=== PATIENT | male | born 1965 | race Caucasian/White ===

== ENCOUNTER 2016-09-17 11:40 | Emergency (ER) | payer BC ==
[~2016-09-17] VITALS: Ht 182.9 cm; Wt 65.0 kg
[2016-09-17 11:41] VITALS: BP 98/65; PULSE 91; RESP 16; TEMP 98.3; O2SAT 97
[2016-09-17 13:07] LABS: AUTOMATED NEUTROPHIL # 7.6 TH/MM3 (1.8-7.7); BASOPHIL # 0.1 TH/MM3 (0-0.2); BASOPHIL % 0.6 % (0.0-2.0); EOSINOPHIL # 0.2 TH/MM3 (0-0.4); EOSINOPHIL % 2.3 % (0.0-4.0); HEMATOCRIT 45.7 % (39.0-51.0); HEMO FLAGS DIFF FINAL; LYMPH % 18.5 % (9.0-44.0); MEAN CELL VOLUME 96.2 FL (80.0-100.0); MEAN CORPUSCULAR HEMOGLOBIN 33.1 PG (27.0-34.0); MEAN CORPUSCULAR HGB CONC 34.5 % (32.0-36.0); NEUT % 71.6 % (16.0-70.0); PLATELET COUNT 147 TH/MM3 (150-450); RED BLOOD COUNT 4.75 MIL/MM3 (4.50-5.90); RED CELL DISTRIBUTION WIDTH 12.7 % (11.6-17.2); WHITE BLOOD COUNT 10.7 TH/MM3 (4.0-11.0)
[2016-09-17 13:11] LABS: BLOOD, URINE NEG (NEG); GLUCOSE,URINE NEG (NEG); KETONE, URINE NEG (NEG); NITRITE,URINE NEG (NEG); PH, URINE 5.5 (5.0-8.5); URINE COLOR LIGHT-YELLOW (YELLW/STRAW)
[2016-09-17 13:12] LABS: COMMENT (UR) CULT NOT INDICATED; CULTURE IF INDICATED CULT NOT INDICATED
[2016-09-17 13:21] LABS: AMPHETAMINE, URINE NEG (NEG); BARBITURATES, URINE NEG (NEG); COCAINE, URINE NEG (NEG)
--- NOTE | 2016-09-17 13:25 | PD ---
HPI Chief Complaint: Suicide Ideation/Attempt Time Seen by Provider: 13:20 Travel History International Travel<30 days: No Contact w/Intl Traveler<30days: No Traveled to known affect area: No History of Present Illness HPI 50-year-old male that presents to the ED for evaluation of depression and alcohol and substance abuse. Per patient she's been using lorazepam for a long time. Per patient is prescribed to him. Per patient he has a history of depression and anxiety. Per patient his coping with his depression with alcohol and the family is very concerned because he continues to drink daily and he is not getting any better. Family brought the patient here for evaluation of possible detox. Patient denies any suicidal or homicidal ideation to me. He does state that he feels depressed and the recent that he feels that presents because the drinking. Denies any pain. Per patient he last drank 2 hours before coming couple beers. No recent surgeries. No other medical issues. No substance abuse other than alcohol and using lorazepam for a long time. PFSH Social History Alcohol Use: Yes (Abuse) Tobacco Use: Yes (0.5 ppd) Substance Use: Yes (admits to using lorazepam) Allergies-Medications (Allergen,Severity, Reaction): Coded Allergies: Sulfa (Verified Allergy, Unknown, 09/17/16) Review of Systems Except as stated in HPI: all other systems reviewed are Neg Physical Exam Narrative GENERAL: SKIN: Warm and dry. HEAD: Atraumatic. Normocephalic. EYES: Pupils equal and round. No scleral icterus. No injection or drainage. ENT: No nasal bleeding or discharge. Mucous membranes pink and moist. Tongue is midline. No uvula deviation. NECK: Trachea midline. No JVD. CARDIOVASCULAR: Regular rate and rhythm. No murmurs, S3, S4. RESPIRATORY: No accessory muscle use. Clear to auscultation. Breath sounds equal bilaterally. GASTROINTESTINAL: Abdomen soft, non-tender, nondistended. Hepatic and splenic margins not palpable. MUSCULOSKELETAL: Extremities without clubbing, cyanosis, or edema. No obvious deformities. Full range of motion of the upper and lower external bilaterally. 2+ pulses bilaterally. NEUROLOGICAL: Awake and alert. No obvious cranial nerve deficits. Motor grossly within normal limits. Five out of 5 muscle strength in the arms and legs. Normal speech. PSYCHIATRIC: Appropriate mood and affect; insight and judgment normal. Data Data Last Documented VS Vital Signs Date Time Temp Pulse Resp B/P Pulse Ox O2 Delivery O2 Flow Rate FiO2 09/17/16 12:51 75 18 99 Room Air 09/17/16 11:41 98.3 98/65 Orders Complete Blood Count With Diff (09/17/16 12:42) Comprehensive Metabolic Panel (09/17/16 12:42) Urinalysis - C+S If Indicated (09/17/16 12:42) Drug Screen, Random Urine (09/17/16 12:42) Alcohol (Ethanol) (09/17/16 12:42) Salicylates (Aspirin) (09/17/16 12:42) Tylenol (Acetaminophen) (09/17/16 12:42) Labs Laboratory Tests Test 09/17/16 12:55 White Blood Count 10.7 TH/MM3 Red Blood Count 4.75 MIL/MM3 Hemoglobin 15.7 GM/DL Hematocrit 45.7 % Mean Corpuscular Volume 96.2 FL Mean Corpuscular Hemoglobin 33.1 PG Mean Corpuscular Hemoglobin 34.5 % Concent Red Cell Distribution Width 12.7 % Platelet Count 147 TH/MM3 Mean Platelet Volume 9.2 FL Neutrophils (%) (Auto) 71.6 % Lymphocytes (%) (Auto) 18.5 % Monocytes (%) (Auto) 7.0 % Eosinophils (%) (Auto) 2.3 % Basophils (%) (Auto) 0.6 % Neutrophils # (Auto) 7.6 TH/MM3 Lymphocytes # (Auto) 2.0 TH/MM3 Monocytes # (Auto) 0.7 TH/MM3 Eosinophils # (Auto) 0.2 TH/MM3 Basophils # (Auto) 0.1 TH/MM3 CBC Comment DIFF FINAL Differential Comment Urine Color LIGHT-YELLOW Urine Turbidity CLEAR Urine pH 5.5 Urine Specific [place] 1.001 Urine Protein NEG mg/dL Urine Glucose (UA) NEG mg/dL Urine Ketones NEG mg/dL Urine Occult Blood NEG Urine Nitrite NEG Urine Bilirubin NEG Urine Urobilinogen LESS THAN 2.0 MG/DL Urine Leukocyte Esterase NEG Urine WBC LESS THAN 1 /hpf Microscopic Urinalysis Comment CULT NOT INDICATED Salicylates Level 3.6 MG/DL Urine Opiates Screen NEG Urine Barbiturates Screen NEG Urine Amphetamines Screen NEG Urine Benzodiazepines Screen POS Urine Cocaine Screen NEG Urine Cannabinoids Screen POS MDM Medical Decision Making Medical Screen Exam Complete: Yes Emergency Medical Condition: Yes Medical Record Reviewed: Yes Interpretation(s) CBC Diagram 09/17/16 12:55 Tox screen positive for alcohol, marijuana and benzos LFTs within normal limits. Differential Diagnosis Depression versus alcohol abuse versus alcohol intoxication versus substance abuse versus normal exam Narrative Course 50-year-old male that presents to the ED for evaluation of possible detox. Patient was properly examined and was found to have signs and symptoms very consistent what appears to be alcohol abuse. Patient is depressed but not suicidal. Family is here with patient and they want patient to have detox. Apparently family has already found a place that will take him. At this time we 'll do labs to medically clear the patient. She was negative and with this plan. Labs were essentially unremarkable other than for alcohol. Patient was medically cleared. Okay to go to detox facilities. See ED worsening symptoms. Diagnosis Primary Impression: Alcohol abuse Additional Impression: Depression Qualified Code: F32.0 - Mild single current episode of major depressive disorder Patient Instructions: General Instructions Additional Instructions: Patient was seen at [facility] today. Patient is medically clear. Close follow-up with PCP. See ED worsening symptoms. Med/Other Pt SpecificInfo: No Change to Meds Disposition: 01 DISCHARGE HOME Condition: Stable Partha Rosales Sep 17, 2016 13:25
[2016-09-17 13:28] LABS: ALT (GPT) 54 U/L (12-78); ANION GAP 9 MEQ/L (5-15); AST (GOT) 96 U/L (15-37); BICARBONATE 26.2 MEQ/L (21.0-32.0); BLOOD UREA NITROGEN 3 MG/DL (7-18); CHLORIDE 102 MEQ/L (98-107); GLOMERULAR FILTRATION RATE 103 ML/MIN (>89); SODIUM (NA) 137 MEQ/L (136-145)
[2016-09-17 13:29] LABS: ACETAMINOPHEN LESS THAN 2.0 MCG/ML (10.0-30.0); ALKALINE PHOSPHATASE 96 U/L (45-117); TOTAL BILIRUBIN ADULT 0.3 MG/DL (0.2-1.0)
[2016-09-17 13:37] VITALS: BP 118/78; TEMP 98.3
--- NOTE | 2016-09-18 10:24 | EKG ---
Date Performed: 09/17/2016 Time Performed: 12:51:00 PTAGE: 50 years EKG: Sinus rhythm NORMAL ECG NO PREVIOUS TRACING DOCTOR: Toni Kruse Interpretating Date/Time 09/18/2016 10:24:03
== END 2016-09-17 13:59 | disposition home or self-care (01) ==
LOC: NEPC 11:40
DX: F10.10 Alcohol abuse, uncomplicated (principal); F32.9 Major depressive disorder, single episode, unspecified; F17.200 Nicotine dependence, unspecified, uncomplicated; Z88.2 Allergy status to sulfonamides
CPT/HCPCS: 80053; 80307; 81001; 85025; 93005; 99283